=== PATIENT | male | born 1940 | race Caucasian/White ===

== ENCOUNTER 2019-05-24 15:27 | Emergency (ER) | payer MEDICARE, SELFPAY ==
[2019-05-24 16:10] VITALS: BP 126/80; PULSE 91; RESP 18; TEMP 37.1; O2SAT 99
[2019-05-24 16:18] LABS: Glucose Point of Care 434 (65-105)
[2019-05-24 16:43] LABS: Basophils Percent Auto 0.3 % (0.2-1.2); Eosinophils Percent Auto 0.2 % (0-4.4); Hematocrit 52.4 % (42.0-52.0); Hemoglobin 16.6 g/dL (14.0-18.0); Immature Granulocyte Absolute 0.16 K/mm3 (0.00-0.031); Immature Granulocyte Percent A 1.4 % (0-0.5); Lymphocytes Absolute Auto 1.33 K/mm3 (0.9-3.2); Lymphocytes Percent Auto 11.4 % (18.3-44.2); Mean Corpuscular HGB Conc 31.7 g/dl (32-36); Mean Corpuscular Volume 91.6 fl (80-100); Mean Platelet Volume 12.5 fl (7.4-10.4); Monocytes Absolute Auto 0.4 K/mm3 (0.1-0.6); Monocytes Percent Auto 3.2 % (2.6-8.5); Neutrophils Absolute Auto 9.7 K/mm3 (1.3-6.7); Neutrophils Percent Auto 83.5 % (45.5-73.1); Platelet Count Result 168 k/mm3 (150-375); Red Blood Count 5.72 M/mm3 (4.6-6.20); Red Cell Distribution Width 14.7 % (11.5-14.5); White Blood Count 11.6 K/mm3 (4.5-10.0)
--- NOTE | 2019-05-24 16:56 | ED.RECABL ---
HPI - Recheck/Abnormal Lab/Rx General Chief Complaint: Recheck/Abnormal Lab/Rx Stated Complaint: BS 600 Time Seen by Provider: 05/24/19 16:40 Source: patient, family (pt's ) and RN notes reviewed Mode of arrival: ambulatory Limitations: no limitations History of Present Illness HPI narrative: Pt is a 79 y/o male with a Hx of DM II, who presents to the ED with c/o hyperglycemia. According to the pt's , he hasn't received his normal insulin for the past several days. She notes that he has been agitated and confused over the past several days. Pt states that he doesn't feel confused, and currently only reports generalized weakness and fatigue. His notes that he recently fell, but she denies the pt sustaining any injuries during the fall. Pt did receive a dosage of insulin around 13:00 today. His notes that she checked his BS at home, and states that it was 438. MD complaint: abnormal lab Returns today for: other (abnormal lab result) Description of abnormal result: Blood Glucose of 438. Context: other (non-compliant with insulin) Associated symptoms: other (generalized weakness; fatigue; confusion (per )) Treatments prior to arrival: other medications (insulin) Related Data Home Medications Medication Instructions Recorded Confirmed albuterol sulfate 90 mcg/actuation 1 inhalation INHALATION Q4H 05/07/19 05/08/19 aerosol inhaler arformoterol 15 mcg/2 mL solution 2 ml INHALATION BID 05/07/19 05/08/19 for nebulization benazepril 40 mg tablet 40 mg PO DAILY 05/07/19 05/08/19 budesonide 0.5 mg/2 mL suspension 0.5 mg INHALATION DAILY 05/07/19 05/08/19 for nebulization furosemide 20 mg tablet 20 mg PO DAILY tablet 05/07/19 05/08/19 indapamide 2.5 mg tablet 2.5 mg PO DAILY 05/07/19 05/08/19 insulin aspar prot-insulin aspart 20 unit SUB-Q BID ml 05/07/19 05/08/19 100 unit/mL (70-30) subcutaneous pen ipratropium bromide 0.02 % 2.5 ml INHALATION Q6H PRN 05/07/19 05/08/19 solution for inhalation oxybutynin chloride 10 mg 10 mg PO DAILY 05/07/19 05/08/19 tablet,extended release 24 hr potassium chloride 20 mEq 20 meq PO DAILY 05/07/19 05/08/19 tablet,extended release prednisone 20 mg tablet 20 mg PO DAILY 05/07/19 05/08/19 simvastatin 20 mg tablet 20 mg PO DAILY 05/07/19 05/08/19 aspirin 81 mg tablet,delayed 81 mg PO DAILY 05/08/19 05/08/19 release clonidine HCl 0.3 mg tablet 0.3 mg PO BID tablet 05/08/19 05/08/19 hydralazine 50 mg tablet 25 mg PO BID tablet 05/08/19 05/08/19 Allergies Allergy/AdvReac Type Severity Reaction Status Date / Time No Known Allergies Allergy Verified 05/08/19 10:59 Review of Systems Review of Systems: All systems reviewed & are unremarkable except as noted in HPI and below Constitutional: Constitutional: Reports fatigue and Reports weakness (generalized) Cardiovascular: Cardiovascular: Denies chest pain and Denies dyspnea Respiratory: Respiratory: Denies cough and Denies dyspnea Gastrointestinal: Gastrointestinal: Denies abdominal pain, Denies diarrhea, Denies nausea and Denies vomiting Neurologic: Reports confusion (per ) [facility] Past Medical History Medical History Basal cell carcinoma COPD (chronic obstructive pulmonary disease) Diabetes Diverticulitis Dyslipidemia Emphysema of lung Essential hypertension Hernia PAF (paroxysmal atrial fibrillation) Pneumonia Sleep apnea Surgical History Surgical History History of hernia repair Family History Family History (Updated 05/07/19 @ 08:53 by Tamica Leong [facility]) Sibling Hypertension COPD (chronic obstructive pulmonary disease) Father Acute myocardial infarction Mother COPD (chronic obstructive pulmonary disease) Renal disease Dementia Heart disease Social History Social History Smoking status: Former smoker Gender identity (if
[2019-05-24 17:02] LABS: Alanine Aminotransferase 37 U/L (4-50); Albumin Level 4.4 g/dL (3.5-5.1); Alkaline Phosphatase 59 U/L (38-126); Aspartate Amino Transferase 31 U/L (17-59); Bilirubin,Total 0.8 mg/dL (0.2-1.3); Blood Urea Nitrogen 46 mg/dL (9-20); Carbon Dioxide 36 mmol/L (22-30); Chloride 89 mmol/L (98-107); Estimated CRCL calculation 46 ml/min; Estimated Glomerular Filt Rate 53; Glucose 395 mg/dL (75-110); Magnesium 1.9 mg/dL (1.6-2.3); Phosphorus 3.8 mg/dL (2.5-4.5); Potassium 4.5 mmol/L (3.4-5.0); Sodium 138 mmol/L (137-145)
[2019-05-24 17:07] LABS: Beta-Hydroxybutyrate/Acetoacetate 0.13 mmol/L (0.02-0.27)
[2019-05-24] MEDS: INSULIN HUMAN REGULAR (*BKC) 100 UNITS/ML 10 UNITS IV PUSH ×2 (17:19→18:42)
[2019-05-24] MEDS: SODIUM CHLORIDE 0.9% IV 1,000 ML 999 ML IV CONT (17:19)
[2019-05-24 17:42] LABS: Add Urine Microscopic? YES; Appearance Urine Clear (Clear); Bilirubin Urine Negative (Negative); Blood Urine Negative (Negative); Color Urine Yellow (Yellow); Glucose Urine UA 3+ mg/dL (Negative); Ketones Urine Negative (Negative); Leukocyte Esterase Ur Negative LEU/UL (Negative); Nitrate Urine Negative (Negative); Protein Urine 1+ mg/dL (Negative); RBC Urine 0-2 /hpf (0-2); Specific Grav Ur 1.018 (1.001-1.035); Urobilinogen Urine Negative mg/dL (<2.0); WBC Urine 0-3 /hpf
[2019-05-24 17:56] LABS: Glucose Point of Care 404 (65-105)
[2019-05-24 19:28] LABS: Glucose Point of Care 114 (65-105)
[2019-05-24 20:15] LABS: Glucose Point of Care 118 (65-105)
[2019-05-24 21:02] VITALS: BP 118/80; PULSE 80; RESP 20; TEMP 36.7; O2SAT 95
== END 2019-05-24 21:04 | disposition home or self-care (01) ==
PROVIDERS: Emergency Provider Emergency Medicine; PCP Internal Medicine
DX: E11.65 Type 2 diabetes mellitus with hyperglycemia (principal); R53.1 Weakness; J43.9 Emphysema, unspecified; E78.5 Hyperlipidemia, unspecified; I10 Essential (primary) hypertension; I48.0 Paroxysmal atrial fibrillation; G47.30 Sleep apnea, unspecified; Z79.82 Long term (current) use of aspirin; Z79.4 Long term (current) use of insulin; Z87.891 Personal history of nicotine dependence; Z85.828 Personal history of other malignant neoplasm of skin
CPT/HCPCS: 36415; 80053; 81001; 82010; 82948; 83735; 84100; 85025; 96361; 96374; 96376; 99284; J1815; J7030